=== PATIENT | female | born 1965 | race Caucasian/White ===

== ENCOUNTER 2018-11-27 08:02 | Emergency (ER) | payer OTHER ==
[2018-11-27] MEDS: ONDANSETRON (ODT) 4 MG TAB ODT (08:52)
[2018-11-27] MEDS: MECLIZINE 12.5 MG TAB PO (08:52)
== END 2018-11-27 09:41 | disposition home or self-care (01) ==
LOC: E/R 08:02
DX: R42 Dizziness and giddiness (principal); I10 Essential (primary) hypertension; E11.9 Type 2 diabetes mellitus without complications; R11.0 Nausea; Z79.84 Long term (current) use of oral hypoglycemic drugs
CPT/HCPCS: 82962; 93005; 99283-25